=== PATIENT | female | born 1960 | race African-American/Black ===

== ENCOUNTER 2017-06-13 09:47 | Outpatient (RCR) | payer OTHER | END 2017-06-21 13:47 | disposition still patient (30) | LOC: WSOH 09:47 | DX: M25.532 Pain in left wrist (principal) ==

== ENCOUNTER 2017-07-16 14:35 | Outpatient (RCR) | payer OTHER | END 2017-07-24 10:13 | disposition still patient (30) | LOC: WSOH 14:35 | DX: M25.532 Pain in left wrist (principal); R20.2 Paresthesia of skin | CPT/HCPCS: 24091; A6549 ==

== ENCOUNTER 2017-08-20 08:08 | Outpatient (RCR) | payer OTHER | END 2017-08-26 15:27 | LOC: WSOH 08:08 | DX: Z51.89 Encounter for other specified aftercare (principal); M25.532 Pain in left wrist; R20.8 Other disturbances of skin sensation; G56.01 Carpal tunnel syndrome, right upper limb ==

== ENCOUNTER → 2020-07-04 | Outpatient (CLI) | payer OTHER | LOC: COL.PUL 12:48 | DX: R06.02 Shortness of breath (principal) | CPT/HCPCS: J7674 ==